=== PATIENT | male | born 1950 | race Caucasian/White ===

== ENCOUNTER 2017-08-02 20:24 | Emergency (ER) | payer MEDICARE, OTHER ==
--- NOTE | 2017-08-02 21:45 | RAD ---
RIGHT HIP: 08/02/17 Two views. HISTORY: Fall with injury to right hip. There are degenerative changes at the hip with mild spurring from the femoral head. Mild medial joint space narrowing. No fracture. 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 POS: KAUSHIK
--- NOTE | 2017-08-02 21:46 | RAD ---
RIGHT SHOULDER: 08/02/17 Three views. HISTORY: Injury to right shoulder with pain. No fracture or dislocation. No significant degenerative change at the glenohumeral joint. Mild spurri ng from the AC joint. IMPRESSION: No acute abnormality. POS: KAUSHIK
[2017-08-02] MEDS ORDERED: Acetaminophen/Codeine 30-300mg Tablet ONE (22:23)
== END 2017-08-02 22:30 | disposition home or self-care (01) ==
LOC: SCSER 20:24
DX: S40.011A Contusion of right shoulder, initial encounter (principal); S70.01XA Contusion of right hip, initial encounter; W17.89XA Other fall from one level to another, initial encounter